=== PATIENT | male | born 1990 | race American Indian/Alaskan Native ===

== ENCOUNTER 2021-03-26 21:55 | Emergency (ER) | payer OTHER, SELFPAY ==
[2021-03-26] VITALS (14 sets, daily range): BP systolic 145–153; BP diastolic 94–107; PULSE 95–117; RESP 12–25; TEMP 36.9; O2SAT 93–99
--- NOTE | ~2021-03-26 | XR_ITS ---
EXAMINATION: XR chest 2V EXAM DATE: 03/26/2021 22:21 INDICATION: cough/ SOB X 10 DAys, No Cardiac Hx TECHNIQUE: Frontal and lateral projections of the chest obtained and reviewed. There is no prior livia dy for comparison. FINDINGS: The lungs are clear. There are no pleural effusions. The cardiomediastinal silhouette is within normal limits. There is no pneumothorax suspected. The bones and soft tissues are unremarkab le. IMPRESSION: Normal chest x-ray exam. Reviewed, dictated and finalized at location G. TEST ENGINEER IMPRESSION: Normal chest x-ray exam.
[2021-03-26] MEDS: ALBUTEROL SULFATE NEB 2.5 MG/0.5 ML INH 5 MG INHALATION (23:07)
[2021-03-26] MEDS: IPRATROPIUM BR 0.02% INH SOLN 0.5 MG/2.5 ML VIAL INHALATION (23:07)
[2021-03-26] MEDS: methylPREDNISolone SOD SUCC 125 MG VIAL IV PUSH (23:09)
--- NOTE | 2021-03-26 23:18 | ED.SOB ---
HPI - SOB/Dyspnea General Chief Complaint: Shortness of Breath/Dyspnea Stated Complaint: SOB after coughing Time Seen by Provider: 03/26/21 22:55 Source: RN notes reviewed History of Present Illness HPI Narrative: Patient presents emergency department from home via EMS for a cough. Patient states that he was having a coughing spell prior to arrival lasted for approximately 45 minutes to me and feel he cannot catch his breath he states he has had a cough for approximately the past 10 days that is been nonproductive he denies any fevers or chills chest pain abdominal pain nausea or vomiting he states that when he does cough he does have a mild headache patient states he has had the COVID-19 vaccinations Related Data Allergies Allergy/AdvReac Type Severity Reaction Status Date / Time No Known Allergies Allergy Verified 03/26/21 22:07 Review of Systems Review of Systems: Gen.: Denies fevers or chills ENT: Denies congestion Respiratory: See HPI CV: Denies chest pain or palpitations GI: Denies abdominal pain nausea, emesis or diarrhea Musculoskeletal: Denies back pain or muscle pain Neuro: Denies numbness, tingling, weakness or focal weakness Skin: Denies rash Except as documented, all other systems reviewed and negative PMFSH Past Medical History Medical History (Updated 03/26/21 @ 23:45 by Cam Rodas DO) Patient denies significant medical history Social History Social History (Updated 03/26/21 @ 23:20 by Cam Rodas DO) Smoking status: Never smoker Exam Narrative: APPEARANCE: No acute distress, nontoxic, resting in bed EYES: EOMI HEENT: Normocephalic, atraumatic, nares patent, oral mucosa moist no erythema exudate posterior pharynx RESPIRATORY: No respiratory distress wheezing in the bilateral upper lung bernardo no rhonchi or rales CARDIOVASCULAR: Regular rate and rhythm without murmurs rubs or gallops. ABDOMINAL: Soft, nontender, nondistended, no rebound or guarding MUSCULOSKELETAl: Moves all extremities. No clubbing, cyanosis or edema. NEURO: Awake and alert. Following commands, speech normal, no focal deficits SKIN:: Warm, dry. No rashes lesions or abrasions PSYCHIATRIC: Normal affect/mood, Course Course Emergency Course: Following breathing treatment repeat lung exam is clear to auscultation bilaterally Discussed with patient results of workup and diagnosis. Discussed need for follow-up with primary care, proper use of medication, and reasons to return to the emergency department. Patient understands and agrees to current treatment plan Vital Signs Vital signs: Vital Signs Temperature 98.4 F 03/26/21 21:57 Pulse Rate 117 H 03/26/21 21:57 Respiratory Rate 22 H 03/26/21 21:57 Blood Pressure 145/104 H 03/26/21 21:57 Pulse Oximetry 96 03/26/21 21:57 Temperature 98.4 F 03/26/21 21:57 Pulse Rate 104 H 03/26/21 23:16 Respiratory Rate 12 03/26/21 23:16 Blood Pressure 147/103 H 03/26/21 23:16 Pulse Oximetry 99 03/26/21 23:45 MDM - SOB/Dyspnea Lab Data Result diagrams: 03/26/21 23:31 03/26/21 23:31 Labs: Lab Results 03/26/21 03/26/21 03/26/21 Range/Units 23:31 23:31 23:31 WBC 12.5 H (4.5-10.0) K/mm3 RBC 5.40 (4.6-6.20) M/mm3 Hgb 16.7 (14.0-18.0) g/dL Hct 48.2 (42.0-52.0) % MCV 89.3 (80-100) fl MCH 30.9 (26-34) pg MCHC 34.6 (32-36) g/dl RDW 12.2 (11.5-14.5) % Plt Count 313 (150-375) k/mm3 MPV 9.2 (7.4-10.4) fl Immature Gran % (Auto) 0.7 H (0-0.5) % Neut % (Auto) 75.0 H (45.5-73.1) % Lymph % (Auto) 13.1 L (18.3-44.2) % Cross % (Auto) 7.2 (2.6-8.5) % Eos % (Auto) 3.8 (0-4.4) % Baso % (Auto) 0.2 (0.2-1.2) % Lymph # (Auto) 1.64 (0.9-3.2) K/mm3 Cross # (Auto) 0.9 H (0.1-0.6) K/mm3 Eos # (Auto) 0.5 H (0-0.3) K/mm3 Baso # (Auto) 0.0 (0.0-0.1) K/mm3 Abs Immat Gran (auto) 0.09 H (0.00-0.031) K/mm3 Absolute Neuts (auto) 9.4 H (1
[2021-03-26] MEDS: SODIUM CHLORIDE 0.9% IV 1,000 ML 999 ML IV CONT (23:25)
[2021-03-26 23:37] LABS: Basophils Percent Auto 0.2 % (0.2-1.2); Eosinophils Absolute Auto 0.5 K/mm3 (0-0.3); Eosinophils Percent Auto 3.8 % (0-4.4); Hematocrit 48.2 % (42.0-52.0); Hemoglobin 16.7 g/dL (14.0-18.0); Immature Granulocyte Absolute 0.09 K/mm3 (0.00-0.031); Immature Granulocyte Percent A 0.7 % (0-0.5); Lymphocytes Absolute Auto 1.64 K/mm3 (0.9-3.2); Lymphocytes Percent Auto 13.1 % (18.3-44.2); Mean Corpuscular HGB Conc 34.6 g/dl (32-36); Mean Corpuscular Hemoglobin 30.9 pg (26-34); Mean Corpuscular Volume 89.3 fl (80-100); Mean Platelet Volume 9.2 fl (7.4-10.4); Monocytes Absolute Auto 0.9 K/mm3 (0.1-0.6); Monocytes Percent Auto 7.2 % (2.6-8.5); Neutrophils Absolute Auto 9.4 K/mm3 (1.3-6.7); Platelet Count Result 313 k/mm3 (150-375); Red Cell Distribution Width 12.2 % (11.5-14.5); White Blood Count 12.5 K/mm3 (4.5-10.0)
[2021-03-26 23:52] LABS: Alanine Aminotransferase 19 U/L (4-50); Albumin Level 4.7 g/dL (3.5-5.1); Alkaline Phosphatase 89 U/L (38-126); Anion Gap 7 mmol/L (8-16); Aspartate Amino Transferase 26 U/L (17-59); Blood Urea Nitrogen 12 mg/dL (9-20); Calcium 9.2 mg/dL (8.4-10.2); Carbon Dioxide 29 mmol/L (22-30); Chloride 103 mmol/L (98-107); Estimated CRCL calculation 70 ml/min; Estimated Glomerular Filt Rate > 60; Glucose 105 mg/dL (65-110); Sodium 139 mmol/L (137-145)
[2021-03-27 00:01] LABS: D Dimer 0.33 ug/mL (<0.48)
[2021-03-27 00:14] VITALS: PULSE 89; RESP 19
[2021-03-27] MEDS: ALBUTEROL SULFATE NEB 2.5 MG/0.5 ML INH 5 MG INHALATION (00:14)
[2021-03-27] MEDS: IPRATROPIUM BR 0.02% INH SOLN 0.5 MG/2.5 ML VIAL INHALATION (00:14)
[2021-03-27 00:22] VITALS: PULSE 92; RESP 22
[2021-03-27 00:55] VITALS: BP 158/116; PULSE 85; RESP 16; O2SAT 98
[2021-03-27 17:30] LABS: SARS-CoV-2 RNA PCR Negative
== END 2021-03-27 00:40 | disposition home or self-care (01) ==
PROVIDERS: Emergency Provider Emergency Medicine
DX: J20.9 Acute bronchitis, unspecified (principal); Z20.822 Contact with and (suspected) exposure to COVID-19
CPT/HCPCS: 36415; 71046; 80053; 85025; 85380; 94640; 96361; 96374; 99284; C9803; J2930; J7030; U0003; U0005